=== PATIENT | male | born 1960 | race Caucasian/White ===

== ENCOUNTER 2017-12-13 11:08 | Inpatient (IN) | payer OTHER ==
[~2017-12-13] VITALS: Ht 177.8 cm; Wt 81.6 kg
[2017-12-13 11:08] VITALS: BP_SYST 141
[2017-12-13] MEDS ORDERED: KETOROLAC TROMETHAMINE 30 MG VIAL IVP ONE (11:30)
[2017-12-13 11:50] LABS: BASOPHILS # (AUTO) 0.2 K/uL (0.0-0.2); BASOPHILS % (AUTO) 1.8 % (0.0-2.0); EOSINOPHILS # (AUTO) 0.2 K/uL (0.0-0.4); EOSINOPHILS % (AUTO) 1.9 % (0.0-4.0); HEMATOCRIT 42.9 % (36-54); HEMOGLOBIN 14.4 g/dL (14.0-18.0); LYMPHOCYTES # (AUTO) 1.6 K/uL (1.0-5.5); LYMPHOCYTES % (AUTO) 14.1 % (20.5-51.5); MEAN CORPUSCULAR HEMOGLOBIN 28 pg (27-31); MEAN CORPUSCULAR HGB CONC 34 % (32-36); MEAN CORPUSCULAR VOLUME 84 fL (79.0-98.0); MONOCYTES % (AUTO) 8.6 % (1.7-9.3); NEUTROPHILS # (AUTO) 8.1 K/uL (1.8-7.7); NEUTROPHILS % (AUTO) 73.6 % (40.0-70.0); PLATELET COUNT (AUTO) 206 K/uL (130-430); RED BLOOD CELL COUNT(AUTO) 5.09 MIL/uL (4.2-6.2); RED CELL DISTRIBUTION WIDTH 14.2 % (9.0-15.0); WHITE BLOOD COUNT (AUTO) 11.1 K/uL (4.8-10.8)
[2017-12-13 11:55] LABS: CLARITY/URINE CLEAR (CLEAR); COLOR,URINE AMBER (YELLOW)
[2017-12-13 11:56] LABS: BILIRUBIN,URINE NEGATIVE (NEGATIVE); BLOOD, URINE NEGATIVE (NEGATIVE); GLUCOSE,URINE NEGATIVE (NEGATIVE); KETONES,URINE NEGATIVE (NEGATIVE); LEUKOCYTE ESTERASE ,URINE NEGATIVE (NEGATIVE); NITRITE, URINE NEGATIVE (NEGATIVE); PROTEIN URINE NEGATIVE (NEGATIVE); UROBILINOGEN,URINE 0.2 (0.2-1.0)
[2017-12-13] MEDS ORDERED: SITA1TAB9 PO (12:03)
[2017-12-13] MEDS ORDERED: [UNRECOGNIZED DRUG - REMARK] PO (12:04)
[2017-12-13] MEDS ORDERED: [UNRECOGNIZED DRUG - REMARK] PO (12:04)
[2017-12-13 12:05] LABS: CALCIUM 8.9 mg/dL (8.4-11.0); CREATININE 1.29 mg/dL (0.55-1.30); POTASSIUM 4.4 mmol/L (3.5-5.1)
[2017-12-13 12:09] LABS: ALBUMIN 4.2 g/dL (3.4-4.8); TOTAL BILIRUBIN 1.3 mg/dL (0.0-1.0)
[2017-12-13] MEDS ORDERED: IOHEXOL 100 ML IV ONE (12:22)
[2017-12-13] MEDS ORDERED: CIPROFLOXACIN LACT 400 MG/D5W 200 ML IV SCH (13:30)
[2017-12-13] MEDS ORDERED: metroNIDAZOLE 500 mg/NS 100 ML IV ONE (13:30)
[2017-12-13] MEDS ORDERED: MORPHINE 2 MG/ML INJ. SYRINGE IVP PRN (14:30)
[2017-12-13 14:34] VITALS: BP_SYST 119
[2017-12-13] MEDS ORDERED: ACETAMINOPHEN 325 MG TABLET PO PRN (14:45)
[2017-12-13] MEDS ORDERED: VALS160T2 PO (15:29)
[2017-12-13] MEDS ORDERED: LIP10 PO (15:29)
[2017-12-13] MEDS: NACL 0.9% 1,000 ML IV SCH (15:53)
[2017-12-13 16:20] VITALS: BP_SYST 106
[2017-12-13 20:00] VITALS: BP_SYST 134
[2017-12-13] MEDS: LACTOBACILLUS RHAMNOSUS GG 1 CAP CAPSULE PO SCH (21:00)
[2017-12-13] MEDS: CIPROFLOXACIN LACT 400 MG/D5W 200 ML IV SCH (21:00)
[2017-12-13] MEDS: metroNIDAZOLE 500 mg/NS 100 ML IV SCH (22:46)
[2017-12-14 00:29] VITALS: BP_SYST 108
[2017-12-14] MEDS: metroNIDAZOLE 500 mg/NS 100 ML IV SCH ×3 (05:25→22:22)
[2017-12-14] MEDS: NACL 0.9% 1,000 ML IV SCH ×2 (05:26→19:57)
[2017-12-14] MEDS: INSULIN REGULAR, HUMAN 100 UNITS/ML, 10 ML VIAL (novoLIN R) SUBCUT PRN ×2 (06:23→12:19)
[2017-12-14 06:38] LABS: BASOPHILS % (AUTO) 0.5 % (0.0-2.0); EOSINOPHILS # (AUTO) 0.2 K/uL (0.0-0.4); EOSINOPHILS % (AUTO) 2.5 % (0.0-4.0); HEMATOCRIT 37.5 % (36-54); HEMOGLOBIN 13.1 g/dL (14.0-18.0); LYMPHOCYTES # (AUTO) 1.4 K/uL (1.0-5.5); LYMPHOCYTES % (AUTO) 15.5 % (20.5-51.5); MEAN CORPUSCULAR HEMOGLOBIN 29 pg (27-31); MEAN CORPUSCULAR HGB CONC 35 % (32-36); MEAN CORPUSCULAR VOLUME 84 fL (79.0-98.0); MONOCYTES # (AUTO) 0.8 K/uL (0.0-1.0); MONOCYTES % (AUTO) 8.4 % (1.7-9.3); NEUTROPHILS # (AUTO) 6.7 K/uL (1.8-7.7); NEUTROPHILS % (AUTO) 73.1 % (40.0-70.0); PLATELET COUNT (AUTO) 175 K/uL (130-430); RED BLOOD CELL COUNT(AUTO) 4.49 MIL/uL (4.2-6.2); RED CELL DISTRIBUTION WIDTH 13.8 % (9.0-15.0); WHITE BLOOD COUNT (AUTO) 9.1 K/uL (4.8-10.8)
[2017-12-14 07:05] LABS: ALBUMIN 3.6 g/dL (3.4-4.8); BILIRUBIN,DIRECT 0.3 mg/dL (0.0-0.3); CALCIUM 8.4 mg/dL (8.4-11.0); CREATININE 1.3 mg/dL (0.55-1.30); POTASSIUM 4.1 mmol/L (3.5-5.1); TOTAL BILIRUBIN 0.9 mg/dL (0.0-1.0)
[2017-12-14] MEDS: VALSARTAN 160 MG TABLET (DIOVAN) PO SCH (09:00)
[2017-12-14] MEDS: CIPROFLOXACIN LACT 400 MG/D5W 200 ML IV SCH ×2 (09:46→20:01)
[2017-12-14] MEDS: LACTOBACILLUS RHAMNOSUS GG 1 CAP CAPSULE PO SCH ×2 (09:51→20:06)
[2017-12-14 09:58] VITALS: BP_SYST 109
[2017-12-14 12:00] VITALS: BP_SYST 113
[2017-12-14 16:46] VITALS: BP_SYST 102
[2017-12-14 19:55] VITALS: BP_SYST 113
[2017-12-14] MEDS ORDERED: IBUPROFEN 600 MG TABLET PO PRN (22:00)
[2017-12-14] MEDS ORDERED: DIPHENHYDRAMINE HCL 25 MG CAPSULE PO PRN (22:00)
[2017-12-15 00:32] VITALS: BP_SYST 106
[2017-12-15] MEDS: metroNIDAZOLE 500 mg/NS 100 ML IV SCH ×3 (05:52→23:28)
[2017-12-15] MEDS: NACL 0.9% 1,000 ML IV SCH ×2 (05:53→16:45)
[2017-12-15 07:03] LABS: BASOPHILS % (AUTO) 0.8 % (0.0-2.0); EOSINOPHILS # (AUTO) 0.2 K/uL (0.0-0.4); EOSINOPHILS % (AUTO) 3.7 % (0.0-4.0); HEMATOCRIT 35.2 % (36-54); HEMOGLOBIN 12.2 g/dL (14.0-18.0); LYMPHOCYTES # (AUTO) 1.4 K/uL (1.0-5.5); LYMPHOCYTES % (AUTO) 29.8 % (20.5-51.5); MEAN CORPUSCULAR HEMOGLOBIN 29 pg (27-31); MEAN CORPUSCULAR HGB CONC 35 % (32-36); MEAN CORPUSCULAR VOLUME 84 fL (79.0-98.0); MONOCYTES # (AUTO) 0.4 K/uL (0.0-1.0); MONOCYTES % (AUTO) 9.1 % (1.7-9.3); NEUTROPHILS # (AUTO) 2.7 K/uL (1.8-7.7); NEUTROPHILS % (AUTO) 56.6 % (40.0-70.0); PLATELET COUNT (AUTO) 153 K/uL (130-430); RED BLOOD CELL COUNT(AUTO) 4.21 MIL/uL (4.2-6.2); WHITE BLOOD COUNT (AUTO) 4.7 K/uL (4.8-10.8)
[2017-12-15 07:18] LABS: CALCIUM 8.3 mg/dL (8.4-11.0); CREATININE 1.26 mg/dL (0.55-1.30); POTASSIUM 4.4 mmol/L (3.5-5.1)
[2017-12-15 07:26] LABS: TOTAL BILIRUBIN 0.5 mg/dL (0.0-1.0)
[2017-12-15 08:00] VITALS: BP_SYST 112
[2017-12-15] MEDS: CIPROFLOXACIN LACT 400 MG/D5W 200 ML IV SCH ×2 (09:00→21:45)
[2017-12-15] MEDS: VALSARTAN 160 MG TABLET (DIOVAN) PO SCH (09:01)
[2017-12-15] MEDS: LACTOBACILLUS RHAMNOSUS GG 1 CAP CAPSULE PO SCH ×2 (09:01→21:55)
[2017-12-15 12:22] VITALS: BP_SYST 126
[2017-12-15 16:20] VITALS: BP_SYST 116
[2017-12-15 20:00] VITALS: BP_SYST 108
[2017-12-16 00:26] VITALS: BP_SYST 119
[2017-12-16] MEDS: metroNIDAZOLE 500 mg/NS 100 ML IV SCH ×3 (06:27→21:57)
[2017-12-16 06:57] LABS: BASOPHILS # (AUTO) 0.1 K/uL (0.0-0.2); BASOPHILS % (AUTO) 0.9 % (0.0-2.0); EOSINOPHILS # (AUTO) 0.2 K/uL (0.0-0.4); EOSINOPHILS % (AUTO) 3.4 % (0.0-4.0); HEMATOCRIT 34.3 % (36-54); HEMOGLOBIN 12.3 g/dL (14.0-18.0); LYMPHOCYTES # (AUTO) 1.4 K/uL (1.0-5.5); LYMPHOCYTES % (AUTO) 22.4 % (20.5-51.5); MEAN CORPUSCULAR HEMOGLOBIN 30 pg (27-31); MEAN CORPUSCULAR HGB CONC 36 % (32-36); MEAN CORPUSCULAR VOLUME 83 fL (79.0-98.0); MONOCYTES # (AUTO) 0.5 K/uL (0.0-1.0); MONOCYTES % (AUTO) 7.5 % (1.7-9.3); NEUTROPHILS % (AUTO) 65.8 % (40.0-70.0); PLATELET COUNT (AUTO) 152 K/uL (130-430); RED BLOOD CELL COUNT(AUTO) 4.15 MIL/uL (4.2-6.2); RED CELL DISTRIBUTION WIDTH 13.6 % (9.0-15.0); WHITE BLOOD COUNT (AUTO) 6.2 K/uL (4.8-10.8)
[2017-12-16 07:08] LABS: CALCIUM 8.1 mg/dL (8.4-11.0); CREATININE 1.17 mg/dL (0.55-1.30); POTASSIUM 4.3 mmol/L (3.5-5.1)
[2017-12-16] MEDS: VALSARTAN 160 MG TABLET (DIOVAN) PO SCH (08:37)
[2017-12-16] MEDS: LACTOBACILLUS RHAMNOSUS GG 1 CAP CAPSULE PO SCH ×2 (08:37→20:03)
[2017-12-16] MEDS: CIPROFLOXACIN LACT 400 MG/D5W 200 ML IV SCH ×2 (08:39→20:03)
[2017-12-16] MEDS: NACL 0.9% 1,000 ML IV SCH ×2 (11:27→11:35)
[2017-12-16 12:36] VITALS: BP_SYST 114
[2017-12-16] MEDS ORDERED: IOHEXOL 100 ML IV ONE (16:03)
[2017-12-16 16:45] VITALS: BP_SYST 118
[2017-12-16 20:00] VITALS: BP_SYST 113
[2017-12-17] MEDS: NACL 0.9% 1,000 ML IV SCH (00:38)
[2017-12-17 01:27] VITALS: BP_SYST 97
[2017-12-17] MEDS: metroNIDAZOLE 500 mg/NS 100 ML IV SCH (05:04)
[2017-12-17 07:45] VITALS: BP_SYST 116
[2017-12-17] MEDS: LACTOBACILLUS RHAMNOSUS GG 1 CAP CAPSULE PO SCH (08:47)
[2017-12-17] MEDS: CIPROFLOXACIN LACT 400 MG/D5W 200 ML IV SCH (08:47)
[2017-12-17] MEDS: VALSARTAN 160 MG TABLET (DIOVAN) PO SCH (08:48)
[2017-12-17 10:33] VITALS: BP_SYST 117
[2017-12-17 11:01] VITALS: BP_SYST 117
== END 2017-12-17 11:35 | disposition home or self-care (01) | DRG 392 ==
LOC: SED 11:08 → SMU 13:46
PROVIDERS: ADMIT Internal Medicine; ATTEND Internal Medicine
DX: K57.32 Diverticulitis of large intestine without perforation or abscess without bleeding (principal); E11.9 Type 2 diabetes mellitus without complications; E78.5 Hyperlipidemia, unspecified; I10 Essential (primary) hypertension; Z79.899 Other long term (current) drug therapy; Z88.0 Allergy status to penicillin; Z88.7 Allergy status to serum and vaccine
CPT/HCPCS: 36415; 80048; 80053; 80076; 81003; 82150-TC; 82962; 83690-TC; 85025; 87040-TC; 96365; 96375; 99285; J0744; J1815; J1885; J2270; J3490; J7030; Q0163; Q9967